=== PATIENT | female | born 1970 | race Caucasian/White ===

== ENCOUNTER 2018-06-30 10:37 | Inpatient (IN) | payer OTHER ==
[~2018-06-30] VITALS: Ht 172.7 cm; Wt 53.5 kg
[~2018-06-30 10:37] MED LIST: CARI350T27 PO; CLON1TAB5 PO; ESZO3TAB27 PO; GABA-534 PO; LISD70CA PO; TRAM50TA2 PO
[2018-06-30] MEDS ORDERED: D AM PO (10:58)
[2018-06-30] MEDS ORDERED: GABA-534 PO (10:58)
[2018-06-30 11:02] LABS: BASOPHILS # (AUTO) 0.1 K/uL (0.0-8.0); BASOPHILS % (AUTO) 1.3 % (0.0-2.0); EOSINOPHILS # (AUTO) 0.1 K/uL (0.0-0.7); EOSINOPHILS % (AUTO) 2.5 % (0.0-7.0); HEMATOCRIT 39.2 % (31.2-41.9); HEMOGLOBIN 13.5 g/dL (10.9-14.3); LYMPHOCYTES # (AUTO) 1.4 K/uL (20.0-40.0); MEAN CORPUSCULAR HGB CONC 34 g/dL (32.3-35.6); MEAN CORPUSCULAR VOLUME 96.3 fL (75.5-95.3); MONOCYTES # (AUTO) 0.5 K/uL (2.0-10.0); NEUTROPHILS # (AUTO) 3.8 K/uL (1.8-8.9); NEUTROPHILS % (AUTO) 64.2 % (38.5-71.5); PLATELET COUNT (AUTO) 233 K/uL (179-408); RED BLOOD CELL COUNT(AUTO) 4.07 MIL/uL (3.63-4.92); WHITE BLOOD COUNT (AUTO) 5.9 K/uL (3.8-11.8)
[2018-06-30 11:17] LABS: CREATININE 0.9 mg/dL (0.6-1.3)
[2018-06-30 11:47] LABS: *URINE HCG, QUAL NEGATIVE (NEGATIVE)
--- NOTE | 2018-06-30 12:36 | NUR ---
Patient is ready for admission & transfer to 2nd floor, pending admitting papers@this time
[2018-06-30] MEDS ORDERED: ASPIRIN 81 MG TAB.CHEW ONE (12:46)
[2018-06-30] MEDS ORDERED: ASPIRIN 81 MG TAB.CHEW PO ONE (13:00)
--- NOTE | 2018-06-30 13:06 | NUR ---
No acute change in condition seen- PATIENT IS PAIN FREE. Patient is resting comfortably on [facility].
[2018-06-30] MEDS ORDERED: ONDANSETRON 4 MG/2 ML VIAL IV PRN (13:30)
[2018-06-30] MEDS ORDERED: Z GUARD REMEDY PASTE 57 GM TUBE TOP PRN (13:30)
[2018-06-30] MEDS ORDERED: MAGNESIUM HYDROXIDE 30 ML LIQUID UDC PO PRN (13:30)
[2018-06-30] MEDS ORDERED: ACETAMINOPHEN 325 MG TABLET PO PRN (13:30)
--- NOTE | 2018-06-30 13:30 | NUR ---
PATIENT ADM FROM ER TO ROOM 226 AWAKE ALERT ORTX4 COOPERATE WELL CALL SYSTEM INSTRUCTION AND CALL LIGHT KEEP IN REACH VS TAKEN STABLE NO SOB OR CHEST PAIN AT THIS TIME
[2018-06-30 14:04] VITALS: BP 133/68
[2018-06-30] MEDS: IV NS 1000 ML 1,000 ML IV SCH ×2 (14:41→23:35)
[2018-06-30] MEDS: CLONAZEPAM 1 MG TABLET PO SCH (16:38)
--- NOTE | 2018-06-30 17:30 | NUR ---
DR KU SEE PATIENT AND NEW ORDER IN CHART MED ADD KLONOPINE GIVEN ORDER FAMILY AT BEDSIDE
[2018-06-30] MEDS ORDERED: CLONAZEPAM 1 MG TABLET PO ONE (17:45)
--- NOTE | 2018-06-30 17:50 | NUR ---
RESTING QUIET AND CALM FAMILY AT BEDSIDE NO CHEST PAIN OR ACUTE DISTRESS SAFETY MEASURE PROVIDED CALL LIGHT IN REACH CONTINUE IVF
--- NOTE | 2018-06-30 20:00 | NUR ---
ROUNDS MADE PATIENT IN BED AAOX3/MAEX4. NO RESPIRATORY DISTRESS ON ROOM AIR . PER PATIENT SHE WANTS TO SLEEP EARLY FOR TONIGHT AFTER HER HS MEDICATION .
[2018-06-30] MEDS: GABAPENTIN 300 MG CAPSULE PO SCH (20:07)
[2018-06-30] MEDS: ESZOPICLONE 3 MG PO SCH (20:07)
[2018-06-30 20:46] VITALS: BP 93/58
[2018-06-30] MEDS ORDERED: Medication Not On Formulary EA (Eszopiclone (Lunesta) 3 MG) PO SCH (21:00)
--- NOTE | 2018-07-01 | NUR ---
SLEEPING IN BED ,NO RESPIRATORY DISTRESS .NOTED .CALLIGHT PLACED WITH REACH .
[2018-07-01 00:45] VITALS: BP 92/56
--- NOTE | 2018-07-01 02:59 | NUR ---
PATIENT CONCERNED ABOUT CAR .HANDS HANGER NOTIFIED ALYSSA CAME AND SPOKED WITH PATIENT AUTHORIZING HER TO MOVE HER CAR TO THE [employer].
[2018-07-01 04:00] VITALS: BP 124/72
[2018-07-01 04:38] LABS: BASOPHILS # (AUTO) 0.1 K/uL (0.0-8.0); BASOPHILS % (AUTO) 1.4 % (0.0-2.0); EOSINOPHILS # (AUTO) 0.2 K/uL (0.0-0.7); EOSINOPHILS % (AUTO) 3.5 % (0.0-7.0); HEMATOCRIT 37.1 % (31.2-41.9); HEMOGLOBIN 12.9 g/dL (10.9-14.3); LYMPHOCYTES # (AUTO) 1.8 K/uL (20.0-40.0); LYMPHOCYTES % (AUTO) 31.4 % (20.5-51.5); MEAN CORPUSCULAR HEMOGLOBIN 33.2 uug (24.7-32.8); MEAN CORPUSCULAR HGB CONC 35 g/dL (32.3-35.6); MEAN CORPUSCULAR VOLUME 95.1 fL (75.5-95.3); MONOCYTES # (AUTO) 0.6 K/uL (2.0-10.0); MONOCYTES % (AUTO) 11.1 % (0.0-11.0); NEUTROPHILS % (AUTO) 52.6 % (38.5-71.5); PLATELET COUNT (AUTO) 230 K/uL (179-408); WHITE BLOOD COUNT (AUTO) 5.7 K/uL (3.8-11.8)
[2018-07-01 04:47] LABS: CREATININE 0.8 mg/dL (0.6-1.3); MAGNESIUM 1.8 mg/dL (1.8-2.4); PHOSPHOROUS 3.7 mg/dL (2.5-4.9); POTASSIUM 3.7 mmol/L (3.5-5.1)
[2018-07-01 08:00] VITALS: BP 106/72
[2018-07-01] MEDS: CLONAZEPAM 1 MG TABLET PO SCH ×3 (08:18→16:03)
[2018-07-01] MEDS: IV NS 1000 ML 1,000 ML IV SCH (08:20)
[2018-07-01] MEDS: HYDROCODONE/APAP 5-325MG TABLET PO PRN (10:40)
[2018-07-01] MEDS ORDERED: NITROGLYCERIN 0.4 MG/TAB BOTTLE SL PRN (11:45)
[2018-07-01 11:56] VITALS: BP 108/64
--- NOTE | 2018-07-01 12:00 | NUR ---
Pt. refusing to have IV fluids running, Coating Machine Helper Dr. Littlejohn notified.
[2018-07-01] MEDS ORDERED: ISOSORBIDE MONONITRATE 30 MG TAB.SR.24H PO SCH (12:15)
--- NOTE | 2018-07-01 12:37 | NUR ---
At this time pt. taken to [facility] for cardiac CT angiogram. pt. previously consented for procedure as ordered by Dr. Littlejohn present in the unit. Premedicated with clonazepan. Pt. also received one dose of Imdur as ordered for c/of chest pain, EKG stat results also examine and discussed with pt. by building attendant.
--- NOTE | 2018-07-01 12:39 | NUR ---
Report given to [facility] medical transport team Tony. Pt. left AAOX4. vitals signs stable, Iv line to LFA patent. Addendum: 07/01/18 at 1240 by VINAYAK MCCLENDON RN pt's at bedside.
--- NOTE | 2018-07-01 14:20 | NUR ---
At this time patient back from [facility] post angiogram. SBP 96/62, Hr 78. Sat 100% . RR18. Addendum: 07/01/18 at 1443 by VINAYAK MCCLENDON RN 94/59, Hr 64.
[2018-07-01 16:12] VITALS: BP 81/45
--- NOTE | 2018-07-01 19:30 | NUR ---
Patient stable at start of shift. No acute distress noted. Sinus Rhythm on tele monitor with HR of 68. Pertinent assessment completed. Patient was refusing vital signs at beginning of shift & finally agreed to allow for VS check. BP low at 85/44. Patient is asymptomatic & states that she is feeling fine & does not want any more VS checks till the AM. Explained risks & benefits. Per day shift nurse, Patient refused IV fluids & MD aware. Patient denying chest pain & SOB at start of shift. Call light within reach. Will continue to monitor through shift.
[2018-07-01] MEDS: GABAPENTIN 300 MG CAPSULE PO SCH (20:09)
[2018-07-01] MEDS: ESZOPICLONE 3 MG PO SCH (20:09)
[2018-07-01 20:12] VITALS: BP 85/44
[2018-07-02] VITALS: BP 111/51
--- NOTE | 2018-07-02 00:23 | NUR ---
BP reassessed per Patient request. BP at 111/51, HR of 81, Sinus rhythm on tele. Patient in stable condition. will continue to monitor.
[2018-07-02] MEDS: HYDROCODONE/APAP 5-325MG TABLET PO PRN (00:50)
--- NOTE | 2018-07-02 03:55 | NUR ---
Patient complaining of extreme migraine headache. Vital signs stable, sinus rhythm on tele monitor. Patient appears to be anxious & restless. Will page lactation coordinator MD.
[2018-07-02 04:56] VITALS: BP 111/76
--- NOTE | 2018-07-02 05:42 | NUR ---
relations mgr MD Wheeler paged x3 times no response till now. Patient complaining. ordered Ibuprofen 600mg PO x1 dose now. Will carry out order & continue to monitor.
[2018-07-02] MEDS ORDERED: IBUPROFEN 600 MG TABLET PO ONE (05:45)
[2018-07-02 06:29] LABS: CREATININE 0.8 mg/dL (0.6-1.3)
[2018-07-02 07:33] LABS: BASOPHILS # (AUTO) 0.1 K/uL (0.0-8.0); BASOPHILS % (AUTO) 0.7 % (0.0-2.0); EOSINOPHILS # (AUTO) 0.2 K/uL (0.0-0.7); EOSINOPHILS % (AUTO) 2.2 % (0.0-7.0); HEMATOCRIT 37.2 % (31.2-41.9); HEMOGLOBIN 12.8 g/dL (10.9-14.3); LYMPHOCYTES # (AUTO) 1.7 K/uL (20.0-40.0); LYMPHOCYTES % (AUTO) 17.9 % (20.5-51.5); MEAN CORPUSCULAR HEMOGLOBIN 33.3 uug (24.7-32.8); MEAN CORPUSCULAR HGB CONC 34 g/dL (32.3-35.6); MEAN CORPUSCULAR VOLUME 97.1 fL (75.5-95.3); MONOCYTES # (AUTO) 0.5 K/uL (2.0-10.0); MONOCYTES % (AUTO) 5.6 % (0.0-11.0); NEUTROPHILS # (AUTO) 6.8 K/uL (1.8-8.9); NEUTROPHILS % (AUTO) 73.6 % (38.5-71.5); PLATELET COUNT (AUTO) 233 K/uL (179-408); RED BLOOD CELL COUNT(AUTO) 3.83 MIL/uL (3.63-4.92); WHITE BLOOD COUNT (AUTO) 9.3 K/uL (3.8-11.8)
--- NOTE | 2018-07-02 07:42 | NUR ---
Upon bedside rounding for shift report, patient very frustrated with "lack of care" wants her IV removed and wants to leave. Encouraged patient to stay and wait for results and MD, patient refusing. IV removed, patient was asked to sign AMA form, patient refused and got back in bed complaining of migraine. Says she has been asking to see a Dr for 7 hrs now. Refusing to wear tele monitor. Charge nurse aware
--- NOTE | 2018-07-02 07:57 | NUR ---
PATIENT REQUESTING PAIN MEDICATION FOR MIGRAINE, OFFERED NORCO THAT IS ORDERED PATIENT REFUSES AND STATES SHE IS RECOVERING ALCOHOLIC, 14 YEARS SOBER.
[2018-07-02] MEDS ORDERED: SUMATRIPTAN SUCCINATE 50 MG TABLET PO ONE (08:30)
[2018-07-02] MEDS: CLONAZEPAM 1 MG TABLET PO SCH (08:41)
[2018-07-02] MEDS ORDERED: ZOLM5TAB10 PO (09:15)
[2018-07-02] MEDS ORDERED: SIMV20TA2 PO (09:15)
--- NOTE | 2018-07-02 10:00 | NUR ---
DISCHARGE NOTED, DR KU SPOKE WITH PATIENT AND PATIENT , DISCHARGE PROTOCOL FOLLOWED, HOME MEDICATIONS RETURNED TO PATIENT, ALL BELONGINGS ACCOUNTED FOR AND SENT HOME WITH PATIENT. PRESCRIPTION GIVEN PATIENT. PATIENT DID NOT WANT WHEELCHAIR, WALKED DOWN AND LEFT IN PRIVATE CAR WITH .
== END 2018-07-02 10:00 | disposition home or self-care (01) | DRG 882 ==
LOC: ER 10:37 → TELE 13:13
PROVIDERS: ADMIT Family Medicine; ATTEND Family Medicine
DX: F45.41 Pain disorder exclusively related to psychological factors (principal); N17.0 Acute kidney failure with tubular necrosis; E44.1 Mild protein-calorie malnutrition; Z68.1 Body mass index [BMI] 19.9 or less, adult; E86.9 Volume depletion, unspecified; R07.89 Other chest pain; F90.9 Attention-deficit hyperactivity disorder, unspecified type; E78.5 Hyperlipidemia, unspecified; G62.9 Polyneuropathy, unspecified; Z87.891 Personal history of nicotine dependence
CPT/HCPCS: 36415; 70030-TC; 71045; 83735; 84100; 84703; 85025; 85730; 93005; 93307; A4663; J7030

== ENCOUNTER 2019-06-07 18:56 | Emergency (ER) | payer OTHER ==
[~2019-06-07] VITALS: Ht 170.2 cm; Wt 51.3 kg
[~2019-06-07 18:56] MED LIST changes: -CARI350T27 PO; +CLON1TAB12 PO; -CLON1TAB5 PO; +D AM PO; +SIMV20TA2 PO; -TRAM50TA2 PO; +ZOLM5TAB10 PO
--- NOTE | 2019-06-07 19:16 | NUR ---
DR TREJO at bedside for MSE.
[2019-06-07 19:29] VITALS: BP 121/76
--- NOTE | 2019-06-07 19:30 | NUR ---
Patient discharged to home in stable conditon. Written and verbal after care instructions given. Patient verbalizes understanding of instructions.
== END 2019-06-07 19:25 | disposition home or self-care (01) ==
LOC: ER 18:56
DX: F41.9 Anxiety disorder, unspecified (principal); F32.9 Major depressive disorder, single episode, unspecified; Z76.0 Encounter for issue of repeat prescription; Z79.899 Other long term (current) drug therapy
CPT/HCPCS: A4663

== ENCOUNTER 2019-06-23 18:48 | Emergency (ER) | payer OTHER ==
--- NOTE | 2019-06-23 19:47 | NUR ---
Patient left without being triaged or seen by ERMD.
== END 2019-06-23 19:48 | disposition left against medical advice (07) ==
LOC: ER 18:48
DX: Z53.21 Procedure and treatment not carried out due to patient leaving prior to being seen by health care provider (principal)